=== PATIENT | male | born 1945 | race Caucasian/White ===

== ENCOUNTER → 2016-09-10 | Day surgery (SDC) | payer MEDICARE, OTHER ==
[~2016-09-10] VITALS: Ht 175.3 cm; Wt 79.4 kg
[~2016-09-10] MED LIST: BACLOFEN 10MG T10 MG PO; FLEXERIL10 MG PO; HYDROCODONE-APA1 TA2 PO; HYDROMORPHONE 2M2 MG IL; INDOMETHACIN 2525 MG PO; LOSARTAN POTASS50 MG PO; NITROFURANTOIN100 M6 PO; TAMSULOSIN HYD0.4 MG PO; TRAZODONE 50MG50 MG PO; VICODIN 7.5/501 EACH PO
[2016-09-10 09:31] VITALS: BP 116/73
[2016-09-10 10:03] VITALS: BP 116/73
[2016-09-10 10:04] VITALS: BP 135/70
--- NOTE | 2016-09-10 10:10 | Procedure Note ---
Procedure detail Date of procedure: 09/10/16 Anesthesiologist: Ruben dia CRNA Complications: None Pre-procedure diagnosis: Degenerative disease lumbar spine multiple levels. Multilevel lumbar facet arthropathy. Lumbar postlaminar syndrome. LEFT sacroiliitis. Post-procedure diagnosis: Same. Indications for procedure: Very pleasant 71-year-old white male that we've been treating her pain clinic for quite some time for chronic low back pain secondary to degenerative disease lumbar spine multiple levels and lumbar postlaminectomy syndrome. LEFT sacroiliitis. We currently medically manage the patient with intrathecal pain pump and is doing quite well. However, he is having some LEFT buttock pain that he describes as constant, dull, aching. He reports the pain intensifies when sitting for any length of time. Patient also complains of pain intensifying when standing from a sitting position. He has extreme point tenderness over the RIGHT SI joint. He presents today for injection. Procedure detail: Procedure: Left sacroiliac injection under fluoroscopy Informed consent was obtained and the risk and benefits of the procedure were explained to the patient.~ The patient was taken to the procedure room and noninvasive monitors were placed including noninvasive blood pressure cuff and pulse oximeter.~ The patient was placed prone on the procedure table.~ The~ left hip was cleansed using Betadine as a cleansing solution.~ C-arm fluorosocpy was used to view the left SI joint.~ The skin and subcutaneous tissues were anesthetized using Lidocaine 1.5% and a 25-gauge needle.~ After this, a 22-gauge spinal needle was inserted under fluoroscopic guidance into the inferior aspect of the left SI joint.~ Omnipaque dye was injected and a good spread was seen throughout the joint.~ After this, approximately 5 mL of bupivacaine 0.25% and Depo-Medrol 40 mg was incrementally injected into the sacroiliac joint.~ The patient tolerated the procedure well with no complications.~ The patient was observed in the Pain Clinic for a period of 30-45 minutes, then discharged home neurologically intact.~ Plan and disposition: Patient for evaluated 10 minutes postprocedure. Patient reports 75 percent improvement terms LEFT hip pain this evaluated and flexion, extension, sitting, standing and ambulation. He'll return to see us in the pain clinic for further evaluation. at 1010
[2016-09-10 10:23] VITALS: BP 132/75
== END ==
LOC: PM 09:15
PROC: 3E0U33Z Introduction of Anti-inflammatory into Joints, Percutaneous Approach (ICD-10-PCS; principal; 2016-09-10)
PROC: 3E0U3BZ Introduction of Anesthetic Agent into Joints, Percutaneous Approach (ICD-10-PCS; 2016-09-10)
DX: M46.1 Sacroiliitis, not elsewhere classified (principal)
CPT/HCPCS: G0260; J1040

== ENCOUNTER 2016-11-16 11:39 | Day surgery (SDC) | payer MEDICARE, OTHER ==
[~2016-11-16] VITALS: Ht 175.3 cm; Wt 77.1 kg
[2016-11-16 11:45] VITALS: BP 133/73
[2016-11-16 12:09] VITALS: BP 133/73
[2016-11-16 12:10] VITALS: BP 140/81
--- NOTE | 2016-11-16 12:19 | Procedure Note ---
Procedure detail Date of procedure: 11/16/16 Anesthesiologist: Ruben dia CRNA Complications: None Pre-procedure diagnosis: Degenerative disease lumbar spine multiple levels. Lumbar postlaminectomy syndrome. Lumbar radiculopathy symptoms. Post-procedure diagnosis: Same Indications for procedure: Very pleasant 71-year-old white male we've been treating her pain clinic for quite some time for chronic low back pain secondary to degenerative disease lumbar spine multiple levels lumbar radiculopathy symptoms and postlaminectomy syndrome. We currently managing him with intrathecal pain pump containing Dilaudid 1 mg/mL running at 0.18 mg per day. Patient is doing very well with his current settings. We'll refill his pump today. Objective: Patient's awake alert oriented 3. In no acute distress. Flexion extension lumbar spine somewhat guarded secondary to pain. Deep and reflexes upper lower extreme is normal. Motor strength upper lower extreme is normal. There is no gross sensory deficit. Gait is normal. Procedure detail: Details of the procedure expected to the patient. The patient taken to the procedure room and placed in the sitting position on the fluoroscopy table. The area over the lumbar spine was cleansed using chlorhexidine as a cleansing solution. Using a 22-gauge access needle from the refill kit the pump was accessed with ease. 6.2 mL of solution was withdrawn and discarded appropriately. At this time 20 mL of Dilaudid 1 mg/mL was injected into the pump without difficulty. The pump was then interrogated and the rate was continued at 0.18 mg per day. Plan and disposition: Patient will continue to follow up with some pain clinic for further evaluation. at [id number]
[2016-11-16 13:27] VITALS: BP 133/73
[2016-11-16 13:35] VITALS: BP 110/86
== END 2016-11-16 12:40 | disposition home or self-care (01) ==
LOC: PM 11:39
DX: M51.16 Intervertebral disc disorders with radiculopathy, lumbar region (principal); M96.1 Postlaminectomy syndrome, not elsewhere classified

== ENCOUNTER 2017-05-10 13:03 | Day surgery (SDC) | payer MEDICARE, OTHER ==
[~2017-05-10] VITALS: Ht 175.3 cm; Wt 80.7 kg
[~2017-05-10 13:03] MED LIST changes: +FLONASE 50 MCG16 GM
[2017-05-10 13:41] VITALS: BP 117/72
[2017-05-10 14:25] VITALS: BP 117/72
[2017-05-10 14:29] VITALS: BP 146/80
--- NOTE | 2017-05-10 14:43 | Procedure Note ---
Procedure detail Date of procedure: 05/10/17 Anesthesiologist: Ruben Garcia Complications: None Pre-procedure diagnosis: Degenerative disc disease lumbar spine multiple levels. Lumbar postlaminectomy syndrome. Lumbar radiculopathy symptoms. Post-procedure diagnosis: Same. Indications for procedure: Very pleasant 72-year-old white male that returns our procedural clinic today for intrathecal pain pump refill. His pump currently contains hydromorphone 5 mg /mL. His current rate is 1 mg per day. Also, PTM at 0.07 mg 6 times daily. Patient seems to be doing very well with his current settings. However, patient is complaining of some low back pain midline lumbar area. Also write leg radicular symptoms at times. We will not change the basal rate. However, we will increase his PTM dose to 0.1 mg 6 times daily. Procedure detail: Details of procedure is going to the patient. The patient taken to procedure room and placed in the sitting position on the fluoroscopy table. The area over the lumbar spine was cleansed using chlorhexidine as cleansing solution. The pump was accessed with ease using 22-gauge needle from the refill kit. 5 mL of solution was withdrawn from the pump and discarded appropriate. The pump was then filled with 20 mL of hydromorphone 10 mg/mL. The pump was interrogated. The rate was continue to 1 mg per day. The PTM was increased to her 0.1 mg 6 times daily. Plan and disposition: She was reevaluated 10 minutes post procedure. He lumbar well. He also will be seen his PCP this afternoon regarding overall fatigue. I told the patient it would be unlikely the fatigue is coming from the intrathecal pain pump given the fact he's had the pump for over 1 year. We discussed adding bupivacaine to his next refill. I discussed in detail with the patient regarding this addition of medication. He agrees. at [id number]
[2017-05-10 14:54] VITALS: BP 156/74
[2017-05-10 17:01] LABS: AMPHETAMINES/METAMPHETAMINES NEGATIVE ng/mL (<1000)
== END 2017-05-10 14:55 | disposition home or self-care (01) ==
LOC: LAB 13:03 → PM 13:03
PROVIDERS: Nurse Anesthetist, Certified Registered
DX: M51.16 Intervertebral disc disorders with radiculopathy, lumbar region (principal); M96.1 Postlaminectomy syndrome, not elsewhere classified